=== PATIENT | male | born 1950 | race Caucasian/White ===

== ENCOUNTER 2019-09-20 12:28 | Inpatient (IN) | payer MEDICARE ==
[~2019-09-20] VITALS: Ht 172.7 cm; Wt 69.7 kg
[~2019-09-20 12:28] MED LIST: ASPI81TA45 PO; ATOR40TA78 PO; CARV3.1212 PO; IBUP200T64 PO; LISI5TAB7 PO; NITR0.4T28 SL; TICA90TA PO
[2019-09-20 15:52] VITALS: BP 180/73
[2019-09-20] MEDS ORDERED: ONDANSETRON ODT 4 MG PO PRN (16:30)
[2019-09-20] MEDS ORDERED: KETOROLAC 30 MG/1 ML IV PRN (16:30)
[2019-09-20] MEDS ORDERED: ACETAMINOPHEN 325 MG TABLET PO PRN (16:30)
[2019-09-20] MEDS ORDERED: POLYETHYLENE GLYCOL 17 GM PACKET PO PRN (16:30)
[2019-09-20] MEDS ORDERED: DOCUSATE 100 MG CAPSULE PO PRN (16:30)
[2019-09-20] MEDS: PLEASE ENTER HEIGHT AND WEIGHT MC SCH (16:30)
[2019-09-20] MEDS ORDERED: ENALAPRILAT 1.25 MG/ML, 2ML IVPush PRN (16:30)
[2019-09-20] MEDS ORDERED: BISACODYL 10 MG SUPP PR PRN (16:30)
[2019-09-20] MEDS ORDERED: LABETALOL 5MG/ML, 20ML IVPush PRN (16:30)
[2019-09-20] MEDS ORDERED: ALBUTEROL SULFATE 2.5 MG/3 ML NPPB PRN (16:30)
[2019-09-20 17:16] LABS: BASOPHILS # (AUTO) 0.01 x10^3/uL (0-0.1); BASOPHILS % (AUTO) 0 % (0-1); EOSINOPHILS # (AUTO) 0.01 x10^3/uL (0-0.4); EOSINOPHILS % (AUTO) 0 % (1-7); LYMPHOCYTES # (AUTO) 1.04 x10^3/uL (1-3.4); LYMPHOCYTES % (AUTO) 9 % (22-44); MD NO; MEAN CORPUSCULAR HEMOGLOBIN 31.5 pg (27.5-34.5); MEAN CORPUSCULAR HGB CONC 33.9 g/dL (33.2-36.2); MEAN PLATELET VOLUME 7.8 fL (7.4-10.4); MONOCYTES # (AUTO) 0.92 x10^3/uL (0.2-0.8); MONOCYTES % (AUTO) 8 % (2-9); NEUTROPHILS # (AUTO) 9.56 x10^3/uL (1.8-6.8); NEUTROPHILS % (AUTO) 83 % (42-75); PLATELET COUNT 174 x10^3/uL (130-400); RED BLOOD COUNT 4.53 x10^6/uL (4.38-5.82); RED CELL DISTRIBUTION WIDTH 13.2 % (9.4-14.8)
[2019-09-20 17:25] LABS: ANION GAP 4 mmol/L (5-15); CALCIUM 8.3 mg/dL (8.5-10.1); CHLORIDE 108 mmol/L (98-107); CREATININE 0.75 mg/dL (0.7-1.3)
[2019-09-20] MEDS: NS + 20MEQ KCL 1,000 ML IV SCH (17:30)
[2019-09-20 20:45] VITALS: BP 159/79
[2019-09-20] MEDS: ONDANSETRON 2MG/ML, 2ML IVPush PRN (20:46)
[2019-09-21] MEDS: PLEASE ENTER HEIGHT AND WEIGHT MC SCH ×3 (00:30→16:28)
[2019-09-21 01:15] VITALS: BP 166/70
[2019-09-21] MEDS: NS + 20MEQ KCL 1,000 ML IV SCH ×3 (02:35→20:30)
[2019-09-21] MEDS: ONDANSETRON 2MG/ML, 2ML IVPush PRN (05:10)
[2019-09-21 06:10] LABS: BASOPHILS # (AUTO) 0.02 x10^3/uL (0-0.1); BASOPHILS % (AUTO) 0 % (0-1); EOSINOPHILS # (AUTO) 0.01 x10^3/uL (0-0.4); EOSINOPHILS % (AUTO) 0 % (1-7); LYMPHOCYTES # (AUTO) 0.92 x10^3/uL (1-3.4); LYMPHOCYTES % (AUTO) 10 % (22-44); MD NO; MEAN CORPUSCULAR HEMOGLOBIN 31.5 pg (27.5-34.5); MEAN CORPUSCULAR HGB CONC 33.7 g/dL (33.2-36.2); MONOCYTES # (AUTO) 0.72 x10^3/uL (0.2-0.8); MONOCYTES % (AUTO) 8 % (2-9); NEUTROPHILS # (AUTO) 7.31 x10^3/uL (1.8-6.8); NEUTROPHILS % (AUTO) 81 % (42-75); PLATELET COUNT 166 x10^3/uL (130-400); RED BLOOD COUNT 4.36 x10^6/uL (4.38-5.82); RED CELL DISTRIBUTION WIDTH 13.2 % (9.4-14.8)
[2019-09-21 06:22] LABS: ANION GAP 5 mmol/L (5-15); CALCIUM 7.9 mg/dL (8.5-10.1); CHLORIDE 109 mmol/L (98-107)
[2019-09-21 06:26] LABS: ALANINE AMINOTRANSFERASE 23 U/L (12-78); ALKALINE PHOSPHATASE 54 U/L (45-117); BILIRUBIN,TOTAL 0.9 mg/dL (0.2-1.0); TOTAL PROTEIN 5.7 g/dL (6.4-8.2)
[2019-09-21 09:59] VITALS: BP 148/67
[2019-09-21 15:59] VITALS: BP 158/84
[2019-09-21 19:26] VITALS: BP 159/85
[2019-09-22] MEDS: PLEASE ENTER HEIGHT AND WEIGHT MC SCH (00:30)
[2019-09-22 02:00] VITALS: BP 164/81
[2019-09-22] MEDS: NS + 20MEQ KCL 1,000 ML IV SCH ×3 (05:15→22:49)
[2019-09-22 07:45] VITALS: BP 165/82
[2019-09-22 13:22] VITALS: BP 157/76
[2019-09-22] MEDS ORDERED: ENALAPRILAT 1.25 MG/ML, 2ML IVPush PRN (16:30)
[2019-09-22 19:19] VITALS: BP 160/81
[2019-09-23 01:42] VITALS: BP 164/79
[2019-09-23 07:11] VITALS: BP 138/82
[2019-09-23] MEDS: NS + 20MEQ KCL 1,000 ML IV SCH ×2 (07:15→16:33)
[2019-09-23 12:58] VITALS: BP 162/83
[2019-09-23 22:14] VITALS: BP 164/79
[2019-09-24] VITALS (7 sets, daily range): BP systolic 123–185; BP diastolic 75–91
[2019-09-24] MEDS: NS + 20MEQ KCL 1,000 ML IV SCH ×3 (00:10→20:02)
[2019-09-24] MEDS: hydrALAzine 20 MG/ML, 1ML IV PRN ×2 (00:11→20:14)
[2019-09-24 06:50] LABS: CHLORIDE 106 mmol/L (98-107)
[2019-09-24 06:54] LABS: ANION GAP 7 mmol/L (5-15); CALCIUM 8.4 mg/dL (8.5-10.1); CREATININE 0.74 mg/dL (0.7-1.3)
[2019-09-24] MEDS: MAGNESIUM HYDROXIDE 8%, 30ML UDC PO SCH ×2 (09:25→20:08)
[2019-09-24] MEDS: CARVEDILOL 3.125 MG TABLET PO SCH ×2 (11:33→17:22)
[2019-09-24] MEDS: LISINOPRIL 5 MG TABLET PO SCH (11:33)
[2019-09-24 13:59] LABS: MICROSCOPIC NOT IND
[2019-09-24] MEDS ORDERED: PRAS10TA4 PO (17:00)
[2019-09-24] MEDS: ATORVASTATIN 40 MG TABLET PO SCH (20:14)
[2019-09-24] MEDS: morphine SULFATE 10 MG/ML, 1ML IVPush PRN (21:48)
[2019-09-24] MEDS: ONDANSETRON 2MG/ML, 2ML IVPush PRN (21:54)
[2019-09-25 01:54] VITALS: BP 140/75
[2019-09-25] MEDS: ONDANSETRON 2MG/ML, 2ML IVPush PRN (04:00)
[2019-09-25] MEDS: morphine SULFATE 10 MG/ML, 1ML IVPush PRN ×3 (04:01→22:15)
[2019-09-25] MEDS: NS + 20MEQ KCL 1,000 ML IV SCH ×2 (04:05→13:55)
[2019-09-25 05:05] LABS: ALBUMIN 3.1 g/dL (3.4-5.0); ANION GAP 8 mmol/L (5-15); CALCIUM 8.1 mg/dL (8.5-10.1); CHLORIDE 104 mmol/L (98-107)
[2019-09-25 05:08] LABS: ALANINE AMINOTRANSFERASE 20 U/L (12-78); ALKALINE PHOSPHATASE 51 U/L (45-117); BILIRUBIN,TOTAL 1.2 mg/dL (0.2-1.0); TOTAL PROTEIN 5.9 g/dL (6.4-8.2)
[2019-09-25 06:16] VITALS: BP 118/72
[2019-09-25] MEDS: CARVEDILOL 3.125 MG TABLET PO SCH ×2 (06:17→18:00)
[2019-09-25 08:02] VITALS: BP 133/75
[2019-09-25] MEDS: LISINOPRIL 5 MG TABLET PO SCH (09:00)
[2019-09-25] MEDS: MAGNESIUM HYDROXIDE 8%, 30ML UDC PO SCH ×2 (09:00→21:00)
[2019-09-25 13:58] VITALS: BP 138/74
[2019-09-25] MEDS ORDERED: BUPIVACAINE/PF-EPI 0.5% 1:200K ONE (16:41)
[2019-09-25] MEDS ORDERED: MIDAZOLAM 1 MG/ML, 2ML ONE (17:17)
[2019-09-25] MEDS ORDERED: FENTANYL PF 250 MCG/5ML ONE (17:17)
[2019-09-25] MEDS ORDERED: PROPOFOL 10 MG/ML, 20ML ONE (17:22)
[2019-09-25] MEDS ORDERED: ONDANSETRON 2MG/ML, 2ML ONE (17:22)
[2019-09-25] MEDS ORDERED: CEFAZOLIN 1,000 MG ONE (17:22)
[2019-09-25] MEDS ORDERED: ROCURONIUM 10 MG/ML,10ML ONE (17:22)
[2019-09-25] MEDS ORDERED: SUGAMMADEX 200 MG/2 ML IVPush ONE (17:22)
[2019-09-25] MEDS ORDERED: HYDROmorphone 1 MG/ML, 1ML INJ IVPush PRN (18:00)
[2019-09-25] MEDS ORDERED: MEPERIDINE/PF 25MG/0.5ML IVPush PRN (18:00)
[2019-09-25] MEDS ORDERED: ACETAMINOPHEN 325 MG TABLET PO PRN (18:00)
[2019-09-25] MEDS ORDERED: DIPHENHYDRAMINE 50 MG/ML, 1ML IVPush PRN (18:00)
[2019-09-25] MEDS ORDERED: OXYcodone 5 MG/5 ML ORAL.SOL UDC PO PRN (18:00)
[2019-09-25] MEDS ORDERED: ONDANSETRON 2MG/ML, 2ML IVPush PRN (18:00)
[2019-09-25] MEDS ORDERED: FENTANYL PF 100 MCG/2ML ONE (18:33)
[2019-09-25] MEDS ORDERED: HYDROmorphone 2 MG/ML, 1ML ONE (18:33)
[2019-09-25] MEDS: FENTANYL PF 100 MCG/2ML IV PRN ×2 (18:41→18:54)
[2019-09-25] MEDS: ATORVASTATIN 40 MG TABLET PO SCH (21:00)
[2019-09-26 00:54] VITALS: BP 103/62
[2019-09-26] MEDS: morphine SULFATE 10 MG/ML, 1ML IVPush PRN ×3 (01:56→22:19)
[2019-09-26 04:09] VITALS: BP 93/56
[2019-09-26 05:20] LABS: MEAN CORPUSCULAR HEMOGLOBIN 30.7 pg (27.5-34.5); MEAN PLATELET VOLUME 7.9 fL (7.4-10.4); PLATELET COUNT 183 x10^3/uL (130-400); RED BLOOD COUNT 4.63 x10^6/uL (4.38-5.82)
[2019-09-26] MEDS: CARVEDILOL 3.125 MG TABLET PO SCH ×2 (05:21→17:32)
[2019-09-26] MEDS: NS + 20MEQ KCL 1,000 ML IV SCH ×3 (05:21→22:31)
[2019-09-26 05:28] LABS: ANION GAP 10 mmol/L (5-15); CALCIUM 8.2 mg/dL (8.5-10.1); CHLORIDE 106 mmol/L (98-107)
[2019-09-26 05:29] LABS: CREATININE 0.86 mg/dL (0.7-1.3)
[2019-09-26 05:52] LABS: MD YES
[2019-09-26 05:54] LABS: <PLATELET ESTIMATE> ADEQUATE; <PLT MORPHOLOGY> NORMAL PLT MORPH; <RBC MORPHOLOGY> NORMAL; BAND#(MANUAL) 1.21 x10^3/uL; BANDS%(MANUAL) 10 % (0-7); LYMPH#(MANUAL) 0.73 x10^3/uL (1-3.4); LYMPHS% (MANUAL) 6 % (22-44); MONOS#(MANUAL) 0.48 x10^3/uL (0.3-2.7); MONOS% (MANUAL) 4 % (2-9); SEG#(MANUAL) 9.68 x10^3/uL (1.8-6.8); SEGS% (MANUAL) 80 % (42-75)
[2019-09-26] MEDS: ONDANSETRON 2MG/ML, 2ML IVPush PRN (06:13)
[2019-09-26 08:13] VITALS: BP 98/68
[2019-09-26] MEDS: LISINOPRIL 5 MG TABLET PO SCH (09:00)
[2019-09-26] MEDS: MAGNESIUM HYDROXIDE 8%, 30ML UDC PO SCH ×2 (09:00→20:38)
[2019-09-26 13:39] VITALS: BP 125/71
[2019-09-26 18:44] VITALS: BP 126/75
[2019-09-26] MEDS: ATORVASTATIN 40 MG TABLET PO SCH (20:37)
[2019-09-26 22:08] VITALS: BP 125/65
[2019-09-27 01:59] VITALS: BP 110/60
[2019-09-27] MEDS: CARVEDILOL 3.125 MG TABLET PO SCH (06:00)
[2019-09-27] MEDS: NS + 20MEQ KCL 1,000 ML IV SCH ×2 (06:02→15:01)
[2019-09-27 07:39] VITALS: BP 101/61
[2019-09-27] MEDS: MAGNESIUM HYDROXIDE 8%, 30ML UDC PO SCH ×2 (08:49→19:22)
[2019-09-27] MEDS: LISINOPRIL 5 MG TABLET PO SCH (08:49)
[2019-09-27 14:24] VITALS: BP 123/69
[2019-09-27 17:33] VITALS: BP 127/73
[2019-09-27 19:13] VITALS: BP 143/77
[2019-09-27] MEDS: ATORVASTATIN 40 MG TABLET PO SCH (21:23)
[2019-09-28 01:08] VITALS: BP 151/74
[2019-09-28] MEDS: NS + 20MEQ KCL 1,000 ML IV SCH (01:08)
[2019-09-28] MEDS: ASPIRIN 81 MG TABLET EC PO SCH (06:12)
[2019-09-28 06:58] VITALS: BP 145/85
[2019-09-28] MEDS: PRASUGREL 10 MG TABLET PO SCH (08:32)
[2019-09-28] MEDS: LISINOPRIL 5 MG TABLET PO SCH (08:33)
[2019-09-28] MEDS: MAGNESIUM HYDROXIDE 8%, 30ML UDC PO SCH ×2 (08:35→20:47)
[2019-09-28 08:56] LABS: ANION GAP 8 mmol/L (5-15); CALCIUM 8.4 mg/dL (8.5-10.1); CHLORIDE 105 mmol/L (98-107); CREATININE 0.64 mg/dL (0.7-1.3)
[2019-09-28] MEDS ORDERED: LISINOPRIL 5 MG TABLET PO SCH (09:00)
[2019-09-28 12:17] VITALS: BP 121/73
[2019-09-28] MEDS ORDERED: NS + 20MEQ KCL 1,000 ML IV SCH (16:14)
[2019-09-28 18:41] VITALS: BP 109/69
[2019-09-28] MEDS: ATORVASTATIN 40 MG TABLET PO SCH (20:50)
[2019-09-29 00:30] VITALS: BP 121/73
[2019-09-29] MEDS: ASPIRIN 81 MG TABLET EC PO SCH (04:21)
[2019-09-29 04:53] LABS: BASOPHILS # (AUTO) 0.03 x10^3/uL (0-0.1); BASOPHILS % (AUTO) 0 % (0-1); EOSINOPHILS % (AUTO) 1 % (1-7); LYMPHOCYTES # (AUTO) 1.59 x10^3/uL (1-3.4); LYMPHOCYTES % (AUTO) 18 % (22-44); MD NO; MEAN CORPUSCULAR HEMOGLOBIN 31.3 pg (27.5-34.5); MEAN CORPUSCULAR HGB CONC 33.5 g/dL (33.2-36.2); MEAN PLATELET VOLUME 8.1 fL (7.4-10.4); MONOCYTES # (AUTO) 0.72 x10^3/uL (0.2-0.8); MONOCYTES % (AUTO) 8 % (2-9); NEUTROPHILS # (AUTO) 6.63 x10^3/uL (1.8-6.8); NEUTROPHILS % (AUTO) 73 % (42-75); PLATELET COUNT 223 x10^3/uL (130-400); RED BLOOD COUNT 4.32 x10^6/uL (4.38-5.82)
[2019-09-29 04:58] LABS: CALCIUM 7.6 mg/dL (8.5-10.1); CREATININE 0.79 mg/dL (0.7-1.3)
[2019-09-29 05:09] LABS: ANION GAP 4 mmol/L (5-15); CHLORIDE 110 mmol/L (98-107)
[2019-09-29 07:08] VITALS: BP 121/74
[2019-09-29] MEDS ORDERED: LISI5TAB7 PO (08:37)
[2019-09-29] MEDS ORDERED: SENN1TAB94 PO (08:37)
[2019-09-29] MEDS: MAGNESIUM HYDROXIDE 8%, 30ML UDC PO SCH (09:00)
[2019-09-29] MEDS: LISINOPRIL 5 MG TABLET PO SCH (09:46)
[2019-09-29] MEDS: PRASUGREL 10 MG TABLET PO SCH (09:46)
[2019-09-29 12:10] VITALS: BP 102/65
== END 2019-09-29 13:30 | disposition home or self-care (01) | DRG 336 ==
LOC: 5SO 15:38 → 4NE 09-25 20:07 → 4WST 09-27 17:02 → DCLOUNGE 09-29 13:24
PROVIDERS: ADMIT Internal Medicine; ATTEND Family Medicine
PROC: 0DNA4ZZ Release Jejunum, Percutaneous Endoscopic Approach (ICD-10-PCS; principal; 2019-09-25 17:00)
DX: K56.600 Partial intestinal obstruction, unspecified as to cause (principal); I47.2 Ventricular tachycardia; R18.8 Other ascites; I10 Essential (primary) hypertension; E88.09 Other disorders of plasma-protein metabolism, not elsewhere classified; I25.10 Atherosclerotic heart disease of native coronary artery without angina pectoris; I25.5 Ischemic cardiomyopathy; Z20.828 Contact with and (suspected) exposure to other viral communicable diseases; Z53.9 Procedure and treatment not carried out, unspecified reason; J45.909 Unspecified asthma, uncomplicated; F12.90 Cannabis use, unspecified, uncomplicated; K57.90 Diverticulosis of intestine, part unspecified, without perforation or abscess without bleeding; Z95.5 Presence of coronary angioplasty implant and graft; Z82.49 Family history of ischemic heart disease and other diseases of the circulatory system; Z79.82 Long term (current) use of aspirin; Z79.02 Long term (current) use of antithrombotics/antiplatelets; Z79.899 Other long term (current) drug therapy; Z87.891 Personal history of nicotine dependence; I25.2 Old myocardial infarction
CPT/HCPCS: 36415; 74018; 80048; 80053; 81003; 83735; 84100; 84443; 85025; 87635; 93005; G0378; J0690; J1170; J1885; J2250; J2405; J2704; J3010; J3480; J0360; J2270